=== PATIENT | male | born 1980 ===

== ENCOUNTER 2017-07-18 17:38 | Emergency (ER) | payer SELFPAY ==
[2017-07-18 17:43] VITALS: TEMP 98.5
[2017-07-18] MEDS ORDERED: PRINIVIL20 MG PO (18:32)
[2017-07-18] MEDS ORDERED: MOTRIN 200200 MG/TAB PO (18:32)
[2017-07-18] MEDS ORDERED: ULTRAM 50MG TAB50 MG PO (18:59)
[2017-07-18 19:11] VITALS: BP 160/98; PULSE 90
== END 2017-07-18 19:13 | disposition home or self-care (01) ==
LOC: COL.ER 17:38
DX: S43.402A Unspecified sprain of left shoulder joint, initial encounter (principal); I10 Essential (primary) hypertension; Z98.890 Other specified postprocedural states; X50.0XXA Overexertion from strenuous movement or load, initial encounter; Y92.009 Unspecified place in unspecified non-institutional (private) residence as the place of occurrence of the external cause